=== PATIENT | male | born 1960 | race Two or more races ===

== ENCOUNTER 2022-04-04 15:07 | Outpatient (REF) | payer OTHER, SELFPAY ==
[2022-04-04 18:03] LABS: Vitamin B12 627 pg/mL (200-900)
[2022-04-07 05:01] LABS: Syphilis Screen Nonreactive (Nonreactive)
[2022-04-07 17:18] LABS: Lyme Abs Screen <0.90 index
== END 2022-04-04 15:08 | disposition home or self-care (01) ==
LOC: HO.LAB 15:07
PROVIDERS: PCP Internal Medicine; Visit Provider Psychiatry & Neurology Neurology
DX: G31.84 Mild cognitive impairment of uncertain or unknown etiology (principal)
CPT/HCPCS: 36415; 82607; 86617; 86618; 86780

== ENCOUNTER 2023-03-30 11:41 | Outpatient (AMB) | payer OTHER, SELFPAY ==
--- NOTE | 2023-03-30 11:43 | A.OFFVIS_ITS ---
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 Denies any recent trauma, injury, or falls. Patient reports chronic low back pain and has received multiple back injections with no pain relief. He also did not gain any improvement in functioning or reduction in pain with physical therapy or home exercise program. His back pain is mostly facet-mediated with intermittent radicular components and worsened with lumbar extension. Right groin and hip pain is worse than back pain today and for the past 2 weeks. I could not reproduce radicular symptoms with SLR testing today bilaterally. Provocative testing for sacroiliac joint only reproduced lateral hip but not the lower back. Pain negatively affects his daily function, ADLs, mobility, sleep, mood, and social activities. Denies any fever, weight loss, abdominal pain, numbness, tingling, bladder or bowel dysfunction, or saddle anesthesia. Per patient's referral, his last lumbar spine MRI revealed chronic L5 bilateral spondylolysis, mild L5-S1 anterolisthesis and lumbar spondylosis with stenosis. Mild and slight disc bulging throughout, most pronounced on the left than on the right, but with bilateral neural foraminal stenosis at the L5-S1 level. At the time of this imaging patient was referred to interventional pain management but did not go. He has tried gabapentin dose titration is of any benefit. He avoids NSAIDs for cardiac reasons. Reports completing EKG and Echo in the past, these reports are not available today. Patient is interested to undergo therapeutic intra-articular right hip steroid injection his light sedation. Location Lower back pain, radiates down to right hip Duration Chronic pain for many years, worsening for the past 2 years Characteristics of symptom or complaint Stabbing, aching, throbbing, shooting, radiating, dull, pulling Aggravating or associated factors Movements, changing position, sitting, walking, weight bearing on right Relieving factors Laying down, rest, heating pads, gabapentin (mild relief) Treatment PT- 2019, history of back injections-no relief PFSH Medical History Dyspnea Memory deficit Pulmonary nodule Legally blind in right eye, as defined in [place] Palpitation Tobacco use disorder Hyperlipidemia Multilevel degenerative disc disease Anxiety Depression Hypertension Social History Alcohol intake: current Alcohol intake frequency: a few times a week Alcohol type: beer Patient Tobacco Use Status: Current everyday Tobacco user Tobacco use type: Cigarette Cigarettes Per Day: 10 Review of Systems Const All systems reviewed & are unremarkable except as noted in HPI and below Physical Exam Vital Signs: Last Vital Signs Pulse 74 03/30/23 11:50 BP 135/84 03/30/23 11:50 Pulse Ox 96 03/30/23 11:50 Oxygen Delivery Method Room Air 03/30/23 11:50 BMI result Body Mass Index 29.9 General: Appears afebrile. Alert and oriented. Mood and affect appropriate. Follows and participates in conversation appropriately. Respiratory effort is unlabored. No cough. Able to transition from sit to stand unassisted. Ambulates with bilaterally normal heel strike and toe off. Back/Spine/Pelvis Other: Limited lumbar spine ROM due to pain. Antalgic gait with limping favoring left side. Demonstrates 5/5 left and 4/5 right strength of quadriceps bilaterally as well as flexion/dorsiflexion of bilateral feet against resistance. 2+ pedal pulses bilaterally. Seated straight leg rise with dorsiflexion negative bilaterally. +1 patellar and achilles reflexes bilaterally. Facet loading test positive bilaterally. [place] JACKIE testing reproduces severe right groin and lateral hip pain. Moderate to severe right groin pain with I/E hip rotations, worse with right internal rotation. Valsalva maneuver negative. Cervical Spine: cervical ROM normal, cervical muscular tenderness and No Cervical spine tenderness Thoracic/Lumbar Spine: thoracic and lumbar spine normal to inspection, No Thoracic/lumbar spine scar(s), Lasegue's sign negative, straight leg raise negative bilaterally, pain with thoraco-lumbar ROM, paraspinal muscle tenderness on the right greater than left, thoraco-lumbar ROM limited, No thoracic spinal tenderness and lumbar spinal tenderness at L4 and at L5 Pelvis: buttock tenderness bilaterally Sacroiliac joints: bilaterally tender to palpation Results Reviewed Results Reviewed: Assessment & Plan Assessment & Plan (1) Lumbar radiculopathy: Code(s): M54.16 - Radiculopathy, lumbar region (2) Multilevel degenerative disc disease: Code(s): M53.9 - Dorsopathy, unspecified (3) Right hip pain: Code(s): M25.551 - Pain in right hip (4) Osteoarthritis of right hip: Code(s): M16.11 - Unilateral primary osteoarthritis, right hip Plan Schedule Right Hip Intra-articular steroid injection with light sedation and fluoroscopy. Expectations, risks and benefits were reviewed. Patient is aware he will be contacted to schedule this procedure. Will send request for medical release of complete lumbar spine MRI report, EKG and Echo. Short script of oxycodone 5 mg #10 tabs provided for severe right hip pain related to OA. Side effects and precautions were reviewed his patient in greater detail. All questions and concerns have been answered and patient agreed with the plan. Follow-up after injection and sooner as needed. Medications: New 2 oxycodone Partial Fill upon patient request. 5 mg PO DAILY 10 days PRN 10 tabs 0RF pain M16.11 - Unilateral primary osteoarthritis, right hip, M25.551 - Pain in right hip, M53.9 - Dorsopathy, unspecified, M54.16 - Radiculopathy, lumbar region Coding Level of Care Code New Pt Level 4 (23018) Diagnoses Lumbar radiculopathy M54.16 Multilevel degenerative disc disease M53.9 Right hip pain M25.551 Osteoarthritis of right hip M16.11
[2023-03-30 11:50] VITALS: BP 135/84; PULSE 74; O2SAT 96; BMI 29.9
== END 2023-03-30 12:08 | disposition home or self-care (01) ==
PROVIDERS: PCP Internal Medicine; Referring Provider Internal Medicine; Visit Provider Nurse Practitioner Family
DX: M54.16 Radiculopathy, lumbar region (principal); M53.9 Dorsopathy, unspecified; M25.551 Pain in right hip; M16.11 Unilateral primary osteoarthritis, right hip
CPT/HCPCS: 99204

== ENCOUNTER → 2023-03-30 11:41 | Outpatient (BNVA) | payer OTHER, SELFPAY | PROVIDERS: PCP Internal Medicine; Referring Provider Internal Medicine; Visit Provider Nurse Practitioner Family | DX: M54.16 Radiculopathy, lumbar region (principal); M53.9 Dorsopathy, unspecified; M25.551 Pain in right hip; M16.11 Unilateral primary osteoarthritis, right hip | CPT/HCPCS: 99202 ==

== ENCOUNTER 2023-05-04 13:25 | Outpatient (AMB) | payer OTHER, SELFPAY ==
--- NOTE | 2023-05-04 13:39 | A.OFFVIS_ITS ---
Intake Vital Signs 3 05/04/23 13:45 Height 6 ft Weight 220 lb 4 oz BMI 29.9 BP 134/67 Blood Pressure Location Lt brachial Position Sitting Pulse 85 Pulse Source Pulse Oximeter Pulse Oximetry (%) 96 Oxygen Delivery Method Room Air Intake Visit Reasons: Follow Up/Medication Discussion Allergies No Known Allergies Allergy (Verified 05/04/23 13:46) Medication List - Last Reconciled 05/04/23 by THO Du albuterol sulfate 90 mcg/actuation (Ventolin HFA) inhalation budesonide-formoterol 160-4.5 mcg/actuation 2 puffs inhalation BID famotidine 20 mg PO DAILY gabapentin mg PO lisinopril-hydrochlorothiazide 20-25 mg 1 tab PO DAILY HPI HPI Comments 2 History of Present Illness0 Details Patient presents today for follow up for right hip pain. He reports significant 8-9/10 right hip pain with radiation into his right groin. Patient ambulates with antalgic gait and limping without assistive devices. We were scheduling right intra-articular hip steroid injection with sedation. However, patient reports significant pain relief with short script of oxycodone and requests today refill for oxycodone. He declned hip steroid injection due to oxycodone relieving most of his right hip pain and allowed him to be more functional and less symptomatic. Patient also reports he does not believe therapeutic injection will be beneficial to him due to no pain relief with previous back injections in the past. I have informed patient that our office does not offer long-term opioid program at this time and previous short script was to alleviate his acute symptoms while he is awaiting to be scheduled for injections. Patient declined any interventional treatments at this time. Denies any fever, bladder or bowel dysfunction, or saddle anesthesia. PRIOR: Patient is a pleasant 62 years old male with prior history of lumbar degenerative disc disease, COPD, chronic back and right hip pain, legally blind in right eye, osteoarthritis, tobacco use disorder, presents today for an initial evaluation of lower back pain that radiates to his right groin and right hip. Denies any recent trauma, injury, or falls. Patient reports chronic low back pain and has received multiple back injections with no pain relief. He also did not gain any improvement in functioning or reduction in pain with physical therapy or home exercise program. His back pain is mostly facet-mediated with intermittent radicular components and worsened with lumbar extension. Right groin and hip pain is worse than back pain today and for the past 2 weeks. I could not reproduce radicular symptoms with SLR testing today bilaterally. Provocative testing for sacroiliac joint only reproduced lateral hip but not the lower back. Pain negatively affects his daily function, ADLs, mobility, sleep, mood, and social activities. Denies any fever, weight loss, abdominal pain, numbness, tingling, bladder or bowel dysfunction, or saddle anesthesia. Per patient's referral, his last lumbar spine MRI revealed chronic L5 bilateral spondylolysis, mild L5-S1 anterolisthesis and lumbar spondylosis with stenosis. Mild and slight disc bulging throughout, most pronounced on the left than on the right, but with bilateral neural foraminal stenosis at the L5-S1 level. At the time of this imaging patient was referred to interventional pain management but did not go. He has tried gabapentin dose titration is of any benefit. He avoids NSAIDs for cardiac reasons. Reports completing EKG and Echo in the past, these reports are not available today. Patient is interested to undergo therapeutic intra-articular right hip steroid injection his light sedation. Location Lower back pain, radiates down to right hip Duration Chronic pain for many years, worsening for the past 2 years Characteristics of symptom or complaint Stabbing, aching, throbbing, shooting, radiating, dull, pulling Aggravating or associated factors Movements, changing position, sitting, walking, weight bearing on right Relieving factors Laying down, rest, heating pads, gabapentin (mild relief) Treatment PT- 2019, history of back injections-no relief PFSH Medical History Dyspnea Memory deficit Pulmonary nodule Legally blind in right eye, as defined in [place] Palpitation Tobacco use disorder Hyperlipidemia Multilevel degenerative disc disease Anxiety Depression Hypertension Social History Alcohol intake: current Alcohol intake frequency: a few times a week Alcohol type: beer Patient Tobacco Use Status: Current everyday Tobacco user Tobacco use type: Cigarette Cigarettes Per Day: 10 Review of Systems Const All systems reviewed & are unremarkable except as noted in HPI and below Physical Exam General: Appears afebrile. Alert and oriented. Mood and affect appropriate. Follows and participates in conversation appropriately. Respiratory effort is unlabored. No cough. Able to transition from sit to stand unassisted. Ambulates with bilaterally normal heel strike and toe off. Back/Spine/Pelvis Other: Limited lumbar spine ROM due to pain. Antalgic gait with limping favoring left side. Moderate to severe right groin pain with I/E hip rotations, worse with right internal rotation. Results Reviewed Results Reviewed: Assessment & Plan Assessment & Plan (1) Multilevel degenerative disc disease: Code(s): M53.9 - Dorsopathy, unspecified (2) Right hip pain: Code(s): M25.551 - Pain in right hip (3) Osteoarthritis of right hip: Code(s): M16.11 - Unilateral primary osteoarthritis, right hip Plan Patient will notify our office if he is interested to proceed with Right Hip Intra-articular steroid injection with light sedation and fluoroscopy. Expectations, risks and benefits were reviewed. I have informed patient that our office does not offer long-term opioid program at this time and previous short script for oxycodone was to alleviate his acute symptoms while he is awaiting to be scheduled for injections. Patient declined any interventional treatments at this time. All questions and concerns have been answered. Follow-up as needed. Coding Level of Care Code Est Pt Level 4 (21404) Diagnoses Multilevel degenerative disc disease M53.9 Right hip pain M25.551 Osteoarthritis of right hip M16.11
[2023-05-04 13:45] VITALS: BP 134/67; PULSE 85; O2SAT 96; BMI 29.9
== END 2023-05-04 13:46 | disposition home or self-care (01) ==
PROVIDERS: PCP Internal Medicine; Visit Provider Nurse Practitioner Family
DX: M53.9 Dorsopathy, unspecified (principal); M25.551 Pain in right hip; M16.11 Unilateral primary osteoarthritis, right hip
CPT/HCPCS: 99214

== ENCOUNTER → 2023-05-04 13:25 | Outpatient (BNVA) | payer OTHER, SELFPAY | PROVIDERS: PCP Internal Medicine; Visit Provider Nurse Practitioner Family | DX: M53.9 Dorsopathy, unspecified (principal); M25.551 Pain in right hip; M16.11 Unilateral primary osteoarthritis, right hip | CPT/HCPCS: 99212 ==